=== PATIENT | female | born 1990 | race Caucasian/White ===

== ENCOUNTER → 2016-12-19 | Outpatient (CLI) | payer OTHER ==
[~2016-12-19] MED LIST: ACET50TA PO; HYDR-3713 PO; IBUP-1114 PO; IBUP800T23 PO; IBUP80TA PO; PRENTAB7 PO; PRENTAB9 PO; TYLE167L PO
[2016-12-19 13:03] LABS: ALBUMIN 3.7 GM/DL (3.2-5.2); ALBUMIN/GLOBULIN RATIO 1.16 (1.00-1.93); ALKALINE PHOSPHATASE 112 U/L (45-117); ALT/SGPT 43 U/L (12-78); ANION GAP 8 MEQ/L (8-16); AST/SGOT 21 U/L (15-37); BILIRUBIN,TOTAL 0.4 MG/DL (0.2-1.0); BLOOD UREA NITROGEN 16 MG/DL (7-18); CALCIUM LEVEL 8.5 MG/DL (8.5-10.1); CARBON DIOXIDE LEVEL 28 MEQ/L (21-32); CHLORIDE LEVEL 106 MEQ/L (98-107); CREATININE FOR GFR 0.68 MG/DL (0.55-1.02); GLOMERULAR FILTRATION RATE > 60.0 (>60); GLUCOSE, FASTING 94 MG/DL (70-105); POTASSIUM SERUM 4.2 MEQ/L (3.5-5.1); SODIUM LEVEL 142 MEQ/L (136-145); TOTAL PROTEIN 6.9 GM/DL (6.4-8.2)
== END ==
LOC: M LAB 11:30
PROVIDERS: ATTEND Physician Assistant
DX: R00.2 Palpitations (principal)

== ENCOUNTER → 2018-03-16 | Outpatient (CLI) | payer OTHER | LOC: M RAD 06:30 | DX: M79.89 Other specified soft tissue disorders (principal) | CPT/HCPCS: 93971 ==

== ENCOUNTER → 2019-02-18 | Outpatient (REF) | payer OTHER ==
[~2019-02-18] MED LIST changes: -ACET50TA PO; +IBUP1TAB7 PO; -IBUP800T23 PO; +MAPA500T2 PO
[2019-02-18 10:39] LABS: ALBUMIN 3.7 GM/DL (3.2-5.2); ALT/SGPT 29 U/L (12-78); BILIRUBIN,TOTAL 0.7 MG/DL (0.2-1.0); BLOOD UREA NITROGEN 16 MG/DL (7-18); CALCIUM LEVEL 8.6 MG/DL (8.5-10.1); CARBON DIOXIDE LEVEL 28 MEQ/L (21-32); CHLORIDE LEVEL 106 MEQ/L (98-107); CHOLESTEROL LEVEL 165 MG/DL (<200); CHOLESTEROL RISK RATIO 3.367 (<5); CREATININE FOR GFR 0.76 MG/DL (0.55-1.30); GLOMERULAR FILTRATION RATE > 60.0 (>60); GLUCOSE, FASTING 100 MG/DL (70-100); HDL CHOLESTEROL 49 MG/DL (>40); LDL CHOLESTEROL 96 MG/DL (<100); NON-HDL-C 116 MG/DL; POTASSIUM SERUM 4.7 MEQ/L (3.5-5.1); SODIUM LEVEL 139 MEQ/L (136-145); TOTAL PROTEIN 7.1 GM/DL (6.4-8.2); TRIGLYCERIDES LEVEL 101 MG/DL (<150)
== END ==
LOC: M SFHCPLAZ 08:38
PROVIDERS: ATTEND Nurse Practitioner Family
DX: Z00.00 Encounter for general adult medical examination without abnormal findings (principal); E66.01 Morbid (severe) obesity due to excess calories; Z68.44 Body mass index [BMI] 60.0-69.9, adult; Z13.220 Encounter for screening for lipoid disorders

== ENCOUNTER → 2019-03-18 | Outpatient (REF) | payer OTHER, MEDICAID | LOC: M LAB REF 17:48 | PROVIDERS: ATTEND Advanced Practice Midwife | DX: Z12.4 Encounter for screening for malignant neoplasm of cervix (principal) ==

== ENCOUNTER 2019-05-10 09:09 | Day surgery (SDC) | payer OTHER ==
[~2019-05-10] VITALS: Ht 162.6 cm; Wt 147.8 kg
[~2019-05-10 09:09] MED LIST changes: +LR 1,000 ML IV ONE
[2019-05-10 09:41] LABS: HEMATOCRIT 41.1 % (36.0-47.0); HEMOGLOBIN 13.5 g/dl (12.0-15.5); MEAN CORPUSCULAR HEMOGLOBIN 31.4 pg (27.0-33.0); MEAN CORPUSCULAR HGB CONC 32.8 g/dl (32.0-36.5); MEAN CORPUSCULAR VOLUME 95.6 fl (80.0-96.0); PLATELET COUNT, AUTOMATED 194 10^3/uL (150-450); WHITE BLOOD COUNT 4.3 10^3/uL (4.0-10.0)
[2019-05-10] MEDS ORDERED: PROB1CAP PO (09:54)
[2019-05-10] MEDS ORDERED: VENTAER INH (09:54)
[2019-05-10] MEDS ORDERED: EQLTAB18 PO (09:54)
[2019-05-10 09:57] LABS: HCG, SERUM QUALITATIVE NEGATIVE (NEGATIVE)
[2019-05-10] MEDS ORDERED: BUPIVACAINE HCL 0.25% 30 ML VIAL As Ordered ONE (10:34)
[2019-05-10] MEDS ORDERED: ONDANSETRON 4MG/2ML VIAL (J2405) As Ordered ONE (10:43)
[2019-05-10] MEDS ORDERED: SUGAMMADEX SODIUM 500 MG/5 ML VIAL (BRIDION) As Ordered ONE (10:43)
[2019-05-10] MEDS ORDERED: ROCURONIUM BROMIDE 50 MG/5 ML VIAL As Ordered ONE (10:43)
[2019-05-10] MEDS ORDERED: fentaNYL 100 MCG/2 ML INJECTION (J3010) As Ordered ONE ×2 (10:43→11:09)
[2019-05-10] MEDS ORDERED: LIDOCAINE 2% INJ 100 MG/5 ML SDV (FOR ANES.) As Ordered ONE (10:43)
[2019-05-10] MEDS ORDERED: dexameTHASONE 4 MG/ML 1ML VIAL (J1100) As Ordered ONE (10:43)
[2019-05-10] MEDS ORDERED: METOCLOPRAMIDE INJ 10MG/2ML VIAL (J2765) As Ordered ONE (10:43)
[2019-05-10] MEDS ORDERED: PROPOFOL 200 MG/20 ML VIAL As Ordered ONE (10:43)
[2019-05-10] MEDS ORDERED: KETOROLAC 60 MG/2 ML VIAL (J1885) As Ordered ONE (10:43)
[2019-05-10] MEDS ORDERED: MIDAZOLAM INJ 2 MG/2 ML VIAL (J2250) As Ordered ONE (10:43)
[2019-05-10] MEDS ORDERED: ACETAMINOPHEN 1000MG 100ML IV BTL (OFIRMEV) (J0131 PER 10MG) As Ordered ONE (11:19)
[2019-05-10] MEDS ORDERED: OXYC1TAB23 PO (11:53)
[2019-05-10] MEDS ORDERED: IBUP80TA PO (11:54)
[2019-05-10] MEDS ORDERED: COLA100C5 PO (11:54)
[2019-05-10] MEDS ORDERED: HYDROMORPHONE HCL 0.5 MG/ 0.5 ML SYRINGE (J1170 PER 1) IV PRN (12:00)
[2019-05-10] MEDS ORDERED: ONDANSETRON 4MG/2ML VIAL (J2405) IV PRN (12:00)
[2019-05-10] MEDS ORDERED: LR 1,000 ML IV SCH ×2 (12:00→12:15)
[2019-05-10] MEDS ORDERED: fentaNYL 100 MCG/2 ML INJECTION (J3010) IV PRN (12:00)
[2019-05-10] MEDS ORDERED: PERCOCET 5MG/325MG TAB PO PRN (12:00)
--- NOTE | 2019-05-10 12:19 | RO ---
DATE OF PROCEDURE: 05/10/2019 PREPROCEDURE DIAGNOSIS: Satisfied parity. POSTPROCEDURE DIAGNOSIS: Satisfied parity. PROCEDURE: Laparoscopic bilateral salpingectomy. SURGEON: Dr. Tj Matthews DO ARCHIVIST: Merari Gonzalez, PGY3 ANESTHESIA: General endotracheal. SPECIMENS SENT TO THE LAB: Right and left fallopian tubes. ESTIMATED BLOOD LOSS: 10 mL. FLUIDS REPLACED: 500 mL lactated Ringers. DRAINS: Urine output through the Addison catheter 400 mL. COMPLICATIONS: None. PREOPERATIVE ANTIBIOTICS: None indicated. 28-year-old with 100% satisfied parity requesting permanent tubal sterilization. She has been counseled on all available control options including long-acting reversible contraception. DESCRIPTION OF PROCEDURE: The patient was counseled and consented of all the risks, benefits, indications and alternatives of the procedure and informed consent was obtained. She was taken to the operating room with IV running and placed on the operating table in the dorsal supine position. General anesthesia was obtained and the airway secured without any difficulty. The patient was placed in the low lithotomy position. She was prepped and draped in the normal sterile fashion. A time-out was performed per protocol. Attention was turned to the pelvis. A Addison catheter was placed under sterile conditions. A sterile speculum was placed with good visualization of the cervix. The anterior lip of the cervix grasped with a single tooth tenaculum and downward traction was applied. The ZUMI uterine manipulator was placed without any difficulty The single tooth tenaculum was removed. Glove switch was performed and attention was turned to the abdomen. A 5 mm umbilical incision was made after injection of 5 mL of 0.25% Marcaine. Through this incision a Veress needle was placed into the intraperitoneal cavity. Intraperitoneal placement was confirmed with the use of normal saline. Negative return on aspiration with positive drop test. Opening pressure was 5 mmHg. Abdomen was insufflated with 2 liters of gas. The Veress needle was removed. Size 5 mm XL laparoscope trocar was placed into the intraperitoneal cavity without any difficulty. No incidental bleeding or injury was noted. The patient was placed into deep Trendelenburg. Two additional laparoscopic port sites were placed in the right and left lower quadrant through 5 mm incisions. The 5 mm Xcel trocars were placed under direct visualization without any difficulty. Attention was first turn to the right fallopian tube. The right fallopian tube was grasped at the fimbriated end and elevated. The underlying mesosalpinx/broad ligaments were sequentially, clamped coagulated and transected using a 5 mm LigaSure device until the level of the cornu was reached. At the level of the cornu, the fallopian tube was clamped, coagulated and transected with the LigaSure device. The fallopian tube was removed through the cannula without any difficulty. Attention was then turned to the opposite side. The fallopian tube was followed out to the fimbriated end, grasped and elevated. The underlying mesosalpinx was sequentially clamped, coagulated and transected to the level of the cornu. At the level of the cornu, the fallopian tube was cross-clamped, coagulated and transected with the 5 mm LigaSure device amputating the fallopian tube. The fallopian tube was brought through the cannula without any difficulty. The surgical sites were noted to be completely hemostatic. The gas was released from the abdomen and hemostasis was maintained. The patient was taken out of Trendelenburg. The cannulas were removed. The incisions were closed with #4-0 Monocryl in a subcuticular fashion and reinforced with Dermabond. Attention was turned to the pelvis. All instruments were removed from the vagina. The tenacula sites were noted to be hemostatic. Sponge, lap, needle and instrument counts were correct per protocol. The patient tolerated the entire procedure well. She was taken to the postanesthesia care unit (PACU) in good and stable condition. BRENDON
[2019-05-10 13:40] VITALS: BP 124/63
== END 2019-05-10 13:40 | disposition home or self-care (01) ==
LOC: M SDC 09:09
PROVIDERS: ATTEND Obstetrics & Gynecology
DX: Z30.2 Encounter for sterilization (principal); G43.909 Migraine, unspecified, not intractable, without status migrainosus; J45.909 Unspecified asthma, uncomplicated; Z79.51 Long term (current) use of inhaled steroids; Z79.899 Other long term (current) drug therapy
CPT/HCPCS: 36415; 58661; 84703; 85027; 86850; 86900; 86901; 88302; J0131; J1100; J1885; J2250; J2405; J2765; J3010

== ENCOUNTER → 2020-02-14 | Outpatient (REF) | payer OTHER ==
[~2020-02-14] MED LIST changes: +COLA100C5 PO; +EQLTAB18 PO; -LR 1,000 ML IV ONE; +OXYC1TAB23 PO; +PROB1CAP PO; +VENTAER INH
== END ==
LOC: M LAB REF 20:15
PROVIDERS: ATTEND Physician Assistant
DX: J02.0 Streptococcal pharyngitis (principal)

== ENCOUNTER → 2020-11-02 | Outpatient (REF) | payer OTHER ==
[~2020-11-02] MED LIST changes: +BACI1CAP4 PO; -PROB1CAP PO
[2020-11-02 17:53] LABS: HEMATOCRIT 40.4 % (36.0-47.0); HEMOGLOBIN 13.1 g/dl (12.0-15.5); MEAN CORPUSCULAR HEMOGLOBIN 31.6 pg (27.0-33.0); MEAN CORPUSCULAR HGB CONC 32.4 g/dl (32.0-36.5); MEAN CORPUSCULAR VOLUME 97.3 fl (80.0-96.0); PLATELET COUNT, AUTOMATED 175 10^3/uL (150-450); RED BLOOD COUNT 4.15 10^6/uL (4.00-5.40); WHITE BLOOD COUNT 6.8 10^3/uL (4.0-10.0)
[2020-11-02 17:58] LABS: C REACTIVE PROTEIN QUANTITATIV < 0.30 MG/DL (0.00-0.30); RHEUMATOID FACTOR QUANT < 10.0 IU/ML (<15.0); URIC ACID 3.8 MG/DL (2.6-6.0)
[2020-11-02 18:48] LABS: ERYTHROCYTE SEDIMENTATION RATE 5 mm/hr (0-20)
[2020-11-04 15:12] LABS: ANTINUCLEAR ANTIBODIES DIRECT Negative (Negative); Lyme Disease IgG/IgM Antibodie <0.91 ISR (0.00-0.90); Lyme Disease IgM Ab Quantitati <0.80 index (0.00-0.79)
== END ==
LOC: M SFHCPLAZ 15:23
PROVIDERS: ATTEND Physician Assistant
DX: M79.89 Other specified soft tissue disorders (principal)

== ENCOUNTER → 2021-08-23 | Outpatient (CLI) | payer OTHER ==
[2021-08-23 13:52] LABS: BASO # 0.1 10^3/uL (0.0-0.2); BASO % 1.3 % (0.0-1.0); EOS # 0.1 10^3/uL (0.0-0.5); EOS % 2.2 % (0.0-3.0); HEMATOCRIT 38.9 % (36.0-47.0); HEMOGLOBIN 12.8 g/dl (12.0-15.5); LYMPH # 1.4 10^3/uL (1.5-5.0); LYMPH % 37.6 % (24.0-44.0); MEAN CORPUSCULAR HEMOGLOBIN 31.8 pg (27.0-33.0); MEAN CORPUSCULAR HGB CONC 32.9 g/dl (32.0-36.5); MEAN CORPUSCULAR VOLUME 96.8 fl (80.0-96.0); MONO # 0.3 10^3/uL (0.0-0.8); NEUTROPHILS # 1.9 10^3/uL (1.5-8.5); NEUTROPHILS % 51.6 % (36.0-66.0); PLATELET COUNT, AUTOMATED 198 10^3/uL (150-450); RED BLOOD COUNT 4.02 10^6/uL (4.00-5.40); WHITE BLOOD COUNT 3.7 10^3/uL (4.0-10.0)
[2021-08-23 14:19] LABS: ALBUMIN 3.5 GM/DL (3.2-5.2); ALT/SGPT 37 U/L (12-78); BILIRUBIN,TOTAL 0.7 MG/DL (0.2-1.0); BLOOD UREA NITROGEN 13 MG/DL (7-18); CALCIUM LEVEL 9.2 MG/DL (8.5-10.1); CARBON DIOXIDE LEVEL 28 MEQ/L (21-32); CHLORIDE LEVEL 109 MEQ/L (98-107); CREATININE FOR GFR 0.61 MG/DL (0.55-1.30); GLOMERULAR FILTRATION RATE > 60.0 (>60); GLUCOSE, FASTING 88 MG/DL (70-100); POTASSIUM SERUM 4.9 MEQ/L (3.5-5.1); SODIUM LEVEL 140 MEQ/L (136-145); TOTAL PROTEIN 6.5 GM/DL (6.4-8.2)
[2021-08-23 15:08] LABS: HEPATITIS C VIRUS ABY INDEX < 0.0 INDEX (<0.8); HIV 1&2 SCREEN CENTAUR NEGATIVE (NEGATIVE)
[2021-08-23 15:17] LABS: ERYTHROCYTE SEDIMENTATION RATE 7 mm/hr (0-20)
[2021-08-24 13:08] LABS: ANTINUCLEAR ANTIBODIES DIRECT Negative (Negative)
== END ==
LOC: M PLALAB 11:01
PROVIDERS: ATTEND Nurse Practitioner Family
DX: Z00.00 Encounter for general adult medical examination without abnormal findings (principal); Z11.3 Encounter for screening for infections with a predominantly sexual mode of transmission; R51.9 Headache, unspecified; I73.00 Raynaud's syndrome without gangrene

== ENCOUNTER → 2021-12-10 | Outpatient (CLI) | payer OTHER ==
[2021-12-10 15:42] LABS: BASO # 0.1 10^3/uL (0.0-0.2); EOS # 0.2 10^3/uL (0.0-0.5); EOS % 3.3 % (0.0-3.0); HEMATOCRIT 41.6 % (36.0-47.0); HEMOGLOBIN 13.5 g/dl (12.0-15.5); LYMPH # 1.9 10^3/uL (1.5-5.0); LYMPH % 35.8 % (24.0-44.0); MEAN CORPUSCULAR HGB CONC 32.5 g/dl (32.0-36.5); MEAN CORPUSCULAR VOLUME 95.4 fl (80.0-96.0); MONO # 0.3 10^3/uL (0.0-0.8); MONO % 5.5 % (2.0-8.0); NEUTROPHILS # 2.8 10^3/uL (1.5-8.5); PLATELET COUNT, AUTOMATED 199 10^3/uL (150-450); RED BLOOD COUNT 4.36 10^6/uL (4.00-5.40); WHITE BLOOD COUNT 5.2 10^3/uL (4.0-10.0)
[2021-12-10 16:08] LABS: HEMOGLOBIN A1c 5.1 %
[2021-12-10 16:13] LABS: ERYTHROCYTE SEDIMENTATION RATE 9 mm/hr (0-20)
[2021-12-10 16:20] LABS: C REACTIVE PROTEIN QUANTITATIV < 0.30 MG/DL (0.00-0.30); THYROID STIMULATING HORMONE 0.969 uIU/ML (0.358-3.740)
== END ==
LOC: M PLALAB 13:57
PROVIDERS: ATTEND Nurse Practitioner Family
DX: E16.2 Hypoglycemia, unspecified (principal); R51.9 Headache, unspecified